=== PATIENT | male | born 1945 | race Caucasian/White ===

== ENCOUNTER 2023-07-07 19:20 | Emergency (ER) | payer BC, MEDICARE ==
[2023-07-07] MEDS ORDERED: Sodium Chloride 0.9% 10 ML Syringe FLUSH PRN (19:22)
[2023-07-07 19:33] LABS: BASOPHILS ABSOLUTE AUTO 0.06 K/uL (0.00-0.10); BASOPHILS PERCENT AUTO 1.1 % (0.1-1.3); EOSINOPHILS ABSOLUTE AUTO 0.24 K/uL (0.00-0.40); EOSINOPHILS PERCENT AUTO 4.3 % (0.0-5.4); HEMOGLOBIN 14.2 g/dL (12.9-16.9); IMMATURE GRAN PERCENT AUTO 0.2 % (0.0-0.7); LYMPHOCYTES ABSOLUTE AUTO 2.18 K/uL (0.8-3.3); MEAN CORPUSCULAR HGB CONC 37.4 g/dL (31.6-35.5); MEAN CORPUSCULAR VOLUME 93.6 fL (81.4-99.0); MONOCYTES ABSOLUTE AUTO 0.56 K/uL (0.20-0.90); NEUTROPHILS ABSOLUTE AUTO 2.54 K/uL (1.0-7.6); NEUTROPHILS PERCENT AUTO 45.4 % (40.0-78.1); PLATELET COUNT,PLT 163 K/uL (130-375); RED BLOOD CELL COUNT 4.06 M/uL (4.14-5.76); WHITE BLOOD CELL COUNT,WBC 5.6 K/uL (3.2-11.0)
[2023-07-07 19:34] LABS: IMMATURE GRAN ABSOLUTE AUTO 0.01 K/uL (0.00-0.23)
[2023-07-07 19:53] LABS: PROTHROMBIN TIME 10.6 sec (9.2-10.6); PTT,PARTIAL THROMBOPLSTIN TIME 24.5 sec (21.8-27.3)
[2023-07-07 19:57] LABS: ANION GAP 15.9 mmol/L (5.0-14.0); CALCIUM 8.6 mg/dL (8.5-10.1); EST CRCL DRUG DOSING (CG) 60.88 mL/min; POTASSIUM,K 3.9 mmol/L (3.6-5.2); TROPONIN I HIGH SENSITIVITY 7.3 pg/mL (<=60.3)
[2023-07-07] MEDS ORDERED: Ketamine 500 MG/5 ML MDV IV ONE (21:21)
== END 2023-07-07 21:41 ==
LOC: JP.ED 19:20
DX: R26.0 Ataxic gait (principal); R47.01 Aphasia; R47.1 Dysarthria and anarthria; H53.9 Unspecified visual disturbance; F10.929 Alcohol use, unspecified with intoxication, unspecified; Y90.8 Blood alcohol level of 240 mg/100 ml or more
CPT/HCPCS: 36415; 70450; 80048; 80307; 82947; 84484; 85025; 85610; 85730; 93005; 93010; 96374; 99285; J3490